=== PATIENT | male | born 1985 | race African-American/Black ===

== ENCOUNTER 2024-11-17 13:40 | Outpatient (CLI) | payer OTHER | END 2024-11-17 13:41 | disposition home or self-care (01) | LOC: CSHMRI 13:40 | DX: S39.92XA Unspecified injury of lower back, initial encounter (principal); M51.379 Other intervertebral disc degeneration, lumbosacral region without mention of lumbar back pain or lower extremity pain | CPT/HCPCS: 72148 ==